=== PATIENT | male | born 1995 | race African-American/Black ===

== ENCOUNTER 2018-09-27 16:30 | Emergency (ER) | payer OTHER ==
--- NOTE | 2018-09-27 16:34 | PDOC ---
Rapid Medical Evaluation Time Seen by Provider: 09/27/18 16:32 Medical Evaluation: Allergies Allergy/AdvReac Type Severity Reaction Status Date / Time No Known Allergies Allergy Verified 12/20/13 10:35 09/27/18 16:32 I performed a brief in-person evaluation of this patient. Chief complaint: Palpitations Pertinent physical exam findings: V/s unremarkable. RRR, S1/S2. Lungs CTAB. I have ordered the following: EKG Patient will proceed to the ED for further evaluation. Discharge Disposition - Diagnosis Palpitations - Referrals - Patient Instructions - Post Discharge Activity
[2018-09-27 16:36] VITALS: BP 141/83; PULSE 78; TEMP 98.8
--- NOTE | 2018-09-27 16:54 | PDOC ---
History of Present Illness - General Chief Complaint: Palpitations Stated Complaint: CHEST PAINS, ABD PAINS Time Seen by Provider: 09/27/18 16:32 - History of Present Illness Initial Comments: 23yo M with no significant PMH complaining of heart palpitations x 2 months. Patient states that he has also been feeling weak. His palpitations have no correlation with activity or exertion. Denies history of thyroid disorder, cardiac pathology, excessive caffeine intake, or use of illicit substances. He does endorse some stress in his life related to his unemployment and concern for his health. Patient also reports LLQ abdominal pain which he attributes to dropping a weight in that area during a workout. No fevers or chills. Past History - Past Medical History Allergies/Adverse Reactions: Allergies Allergy/AdvReac Type Severity Reaction Status Date / Time No Known Allergies Allergy Verified 09/27/18 16:32 Home Medications: Ambulatory Orders No Home Medications 0 dose .ROUTE UTDICT 12/09/12 Acetaminophen [Tylenol .Extra-Strength -] 500 mg PO Q4H #30 tablet 12/20/13 Famotidine [Pepcid -] 20 mg PO DAILY #7 tablet 12/20/13 Asthma: Yes COPD: No Other medical history: hard of hearing - Suicide/Smoking/Psychosocial Hx Smoking Status: No Smoking History: Never smoked Number of Cigarettes Smoked Daily: 0 Hx Alcohol Use: No Substance Use Type: None Review of Systems - Review of Systems Comments:: Constitutional: no fever, no chills HEENT: no throat pain, no dysphagia Cardiovascular: no chest pain, +palpitations Respiratory: no cough, no shortness of breath Gastrointestinal: +abdominal pain, no nausea Genitourinary: no dysuria, no frequency Musculoskeletal: no myalgia, no arthralgia Skin: no rash, no itching Neurologic: no headache, no dizziness *Physical Exam - Vital Signs Last Vital Signs Temp Pulse Resp BP Pulse Ox 98.8 F 78 20 141/83 98 09/27/18 16:33 09/27/18 16:33 09/27/18 16:33 09/27/18 16:33 09/27/18 16:33 - Physical Exam Comments: General: Awake, alert, and fully oriented, in no acute distress Head: No signs of trauma Eyes: EOMI, sclera anicteric ENT: Moist mucus membranes, hard of hearing Neck: Normal ROM, supple Lungs: Lungs clear, Normal breath sounds Cardio: Regular rhythm, S1 and S2 present, grade I systolic murmur Abdomen: Soft, nondistended, nontender. No guarding, no rebound, no masses Extremities: Normal range of motion, Distal pulses present SKIN: Warm, Dry, normal turgor Neurologic: Cranial nerves II through XII grossly intact. Moderate Sedation - Procedure Monitoring Vital Signs: Procedure Monitoring Vital Signs Temperature 98.8 F 09/27/18 16:33 Pulse Rate 78 09/27/18 16:33 Respiratory Rate 20 09/27/18 16:33 Blood Pressure 141/83 09/27/18 16:33 O2 Sat by Pulse Oximetry (%) 98 09/27/18 16:33 ED Treatment Course - LABORATORY CBC & Chemistry Diagram: 09/27/18 17:50 09/27/18 17:50 Medical Decision Making - Medical Decision Making 23yo M with no significant PMH complaining of heart palpitations x 2 months. DDX including but not limited to thyroid disorder, cardiac arrhythmia, congenital heart disease, anemia, anxiety EKG, CBC, CMP, TSH 09/27/18 18:06 EKG: Rate 81, QTc 420, NSR with sinus arrhythmia No anemia or leukocytosis, CMP and TSH pending 09/27/18 18:33 CMP and TSH unremarkable Plan to discharge 09/27/18 18:49 *DC/Admit/Observation/Transfer Diagnosis at time of Disposition: Palpitations - Discharge Dispostion Disposition: HOME Condition at time of disposition: Stable - Referrals Referrals: Riccardo Melvin MD [Primary Care Provider] - [facility] [Provider Group] - Patient Instructions Printed Discharge Instructions: DI for Palpitations Additional Instructions: You came into the ED for palpitations. Blood work and EKG did not indicate acute pathology. A copy of your lab results was given to you. Please review the handout about palpitations. Follow-up with a primary care physician this week to discuss this ED visit and to further evaluate your symptoms. Your care is not complete until you do so. Your bilirubin level was noted to be elevated and this is something your primary care provider should know about. You have been referred to the [facility]. Call and make an appointment at the number provided. Immediate medical attention is required if: you pass out, have any chest pain, shortness of breath, severe headaches, changes in vision, focal numbness or weakness, any severe abdominal pain, any black tarry stool, or any new or concerning symptoms. If you think you are having an emergency, call for emergency medical services or present to the emergency department right away. - Post Discharge Activity
--- NOTE | 2018-09-27 17:25 | PDOC ---
Attending Attestation - HPI HPI: 09/27/18 18:18 The patient is a 23 year old male with no significant PMH who presents to the ER with intermittent palpitations for the past 2 months. Patient states the palpitations worsened today prompting him to come to the ER for an evaluation. Patient reports the palpitations are exacerbated when lying flat. The palpitations are not worsened with exercise. Patient denies any caffeine intake. Patient quit smoking marijuana a year ago. Patient denies any cardiac history. Allergies: NKDA Social Hx: No reported drug, alcohol, or cigarette use. Surgical Hx: None reported. PCP: Dr. Melvin - Physicial Exam PE: 09/27/18 18:15 GENERAL: Awake, alert, and fully oriented, in no acute distress HEAD: No signs of trauma EYES: PERRLA, EOMI, sclera anicteric, conjunctiva clear ENT: Auricles normal inspection, hearing impaired, nares patent, oropharynx clear without exudates. Moist mucosa NECK: Normal ROM, supple, no lymphadenopathy, JVD, or masses LUNGS: Breath sounds equal, clear to auscultation bilaterally. No wheezes, and no crackles HEART: Regular rate and rhythm, normal S1 and S2, no rubs or gallops, (+) Functional heart murmur 2/6. ABDOMEN: Soft, nontender, normoactive bowel sounds. No guarding, no rebound. No masses EXTREMITIES: Normal range of motion, no edema. No clubbing or cyanosis. No cords, erythema, or tenderness NEUROLOGICAL: Deaf. SKIN: Warm, Dry, normal turgor, no rashes or lesions noted. <Jessica Meraz - Last Filed: 09/27/18 18:58> - Resident Resident Name: Marla Cruz - ED Attending Attestation I have performed the following: I have examined & evaluated the patient, The case was reviewed & discussed with the resident, I agree w/resident's findings & plan, Exceptions are as noted - HPI HPI: 09/27/18 17:25 this 23 yo male p/w complaint of palpitations 09/27/18 18:57 - Medical Decision Making 09/27/18 18:50 labs are within normal EXCEPT for his total bilirubin, recommend he followup with primary physician as outpt . He has no nausea,vomiting or epigastric pain currently pt given an appt with [facility] 09/27/18 18:53 09/28/18 01:14 imp: palpitations, elevated T bili plan appointment made for this pt at [facility] for later this week <Megan Sanders - Last Filed: 09/28/18 01:15>
[2018-09-27 18:06] LABS: BASO % 0.7 % (0-2.0); HEMATOCRIT 41.8 % (35.4-49); LYMPH % 41.6 % (8-40); MCH 30.2 pg (25.7-33.7); MCHC 35.8 g/dl (32.0-35.9); MEAN CELL VOLUME 84.2 fl (80-96); MEAN PLT VOLUME 9.3 fl (7.5-11.1); MONO % 11.3 % (3.8-10.2); NEUT % 44.4 % (42.8-82.8); PLATELET COUNT 157 K/MM3 (134-434); RBC 4.97 M/mm3 (4.00-5.60); WHITE BLOOD COUNT 3.9 K/mm3 (4.0-10.0)
[2018-09-27 18:37] LABS: ALBUMIN 4.2 g/dl (3.4-5.0); ALK PHOS 43 U/L (45-117); ANION GAP 7 MMOL/L (8-16); BILIRUBIN,TOTAL 2.9 mg/dL (0.2-1); BLOOD UREA NITROGEN 10 mg/dL (7-18); CALCIUM 8.7 mg/dL (8.5-10.1); CHLORIDE 106 mmol/L (98-107); CO2 27 mmol/L (21-32); GLUCOSE,RANDOM 105 mg/dL (74-106); POTASSIUM 3.4 mmol/L (3.5-5.1); SGOT/AST 15 U/L (15-37); SGPT/ALT 19 U/L (13-61); SODIUM 140 mmol/L (136-145); TOT PROT 7.3 g/dl (6.4-8.2)
--- NOTE | 2018-09-28 11:54 | EKG ---
Test Reason : Blood Pressure : / mmHG Vent. Rate : 081 BPM Atrial Rate : 081 BPM P-R Int : 164 ms QRS Dur : 082 ms QT Int : 362 ms P-R-T Axes : 053 004 042 degrees QTc Int : 420 ms NORMAL SINUS RHYTHM WITH SINUS ARRHYTHMIA NORMAL ECG WHEN COMPARED WITH ECG OF 20-DEC-2013 12:04, T WAVE INVERSION NO LONGER EVIDENT IN ANTERIOR LEADS Confirmed by MD NUBIA, NATHALIE ([id number]) on 09/28/2018 11:53:50 AM Referred By: Confirmed By:NATHALIE DELACRUZ MD
== END 2018-09-27 19:05 | disposition home or self-care (01) ==
LOC: JER 16:30
DX: R00.2 Palpitations (principal); R79.89 Other specified abnormal findings of blood chemistry
CPT/HCPCS: 36415; 80053; 84443; 85025; 93005; 93010; 99282-25

== ENCOUNTER 2019-01-02 10:01 | Emergency (ER) | payer OTHER ==
[2019-01-02 10:12] VITALS: BP 113/70; PULSE 72; TEMP 98.1; BMI 20.2
[2019-01-02] MEDS ORDERED: DEXAMETHASONE SOD PHOSPHATE 10 MG/1 ML VIAL IM ONE (10:22)
[2019-01-02] MEDS ORDERED: ALBUTEROL SO4 2.5/IPRATROPIUM 0.5 INH SOL 3 ML VIAL.NEB. NEB ONE ×2 (10:22→10:25)
[2019-01-02] MEDS ORDERED: DEXAMETHASONE SOD PHOSPHATE 10 MG/1 ML VIAL ONE (10:25)
--- NOTE | 2019-01-02 10:36 | PDOC ---
History of Present Illness - General Chief Complaint: Asthma Stated Complaint: CHEST PAIN Time Seen by Provider: 01/02/19 10:17 History Source: Patient Exam Limitations: Clinical Condition - History of Present Illness Initial Comments: 01/02/19 10:33 Patient with history of asthma present with complaint of 2 weeks history of intermittent chest tightness and wheezing. Patient denies cough, shortness of breath, chest pain, nausea or vomiting. Denies any other symptoms Timing/Duration: other (2 weeks) Past History - Past Medical History Allergies/Adverse Reactions: Allergies Allergy/AdvReac Type Severity Reaction Status Date / Time No Known Allergies Allergy Verified 01/02/19 10:09 Home Medications: Ambulatory Orders Prednisone [Deltasone] 20 mg PO BID 4 Days #8 tablet 01/02/19 Asthma: Yes COPD: No Other medical history: [place] B[employer] - Suicide/Smoking/Psychosocial Hx Smoking Status: No Smoking History: Never smoked Number of Cigarettes Smoked Daily: 0 Hx Alcohol Use: No Substance Use Type: None Review of Systems - Review of Systems Able to Perform ROS?: Yes Is the patient limited Albanian proficient: No Constitutional: No: Fever, Malaise HEENTM: No: Symptoms Reported, See HPI, Eye Pain, Blurred Vision, Tearing, Recent change in vision, Double Vision, Cataracts, Ear Pain, Ocular Prothesis, Ear Discharge, Nose Pain, Nose Congestion, Tinnitus, Nose Bleeding, Hearing Loss , Throat Pain, Throat Swelling, Mouth Pain, Dental Problems, Difficulty Swallowing, Mouth Swelling, Other Respiratory: No: Symptoms reported, See HPI, Cough, Orthopnea, Shortness of Breath, SOB with Exertion, SOB at Rest, Stridor, Wheezing, Productive cough, Hemoptysis, Other Cardiac (ROS): Yes: Symptoms Reported, See HPI, Chest Tightness. No: Chest Pain , Edema, Irregular Heart Rate, Lightheadedness, Palpitations, Syncope, Other ABD/GI: No: Nausea, Vomiting Neurological: No: Headache, Numbness, Paresthesia, Weakness, Dizziness All Other Systems: Reviewed and Negative *Physical Exam - Vital Signs Last Vital Signs Temp Pulse Resp BP Pulse Ox 98.1 F 72 18 113/70 99 01/02/19 10:07 01/02/19 10:07 01/02/19 10:07 01/02/19 10:07 01/02/19 10:07 - Physical Exam Comments: 01/02/19 10:31 GENERAL: Well developed, well nourished. Awake and alert. No acute distress. HEENT: Normocephalic, atraumatic. PERRLA, EOMI. No conjunctival pallor. Sclera are non-icteric. Moist mucous membranes. Oropharynx is clear. NECK: Supple. Full ROM. CARDIOVASCULAR: Regular rate and rhythm. No murmurs, rubs, or gallops. Distal pulses are 2+ and symmetric. PULMONARY: No evidence of respiratory distress. Lungs clear to auscultation bilaterally. No wheezing, rales or rhonchi. ABDOMINAL: Soft. Non-tender. Non-distended. No rebound or guarding. No organomegaly. Normoactive bowel sounds. MUSCULOSKELETAL Normal range of motion at all joints. SKIN: Warm and dry. Normal capillary refill. No rashes. No cyanosis NEUROLOGICAL: Alert, awake, appropriate. Gait is normal without ataxia. PSYCHIATRIC: Cooperative. Good eye contact. Appropriate mood General Appearance: Yes: Nourished, Appropriately Dressed. No: Apparent Distress ED Treatment Course - Medications Given in the ED: ED Medications Discontinued Medications Generic Name Dose Route Start Last Admin Trade Name Freq PRN Reason Stop Dose Admin Albuterol/Ipratropium 2 amp 01/02/19 10:22 01/02/19 10:31 Duoneb - NEB 01/02/19 10:23 2 amp ONCE ONE Administration Dexamethasone Sodium Phosphate 10 mg 01/02/19 10:22 01/02/19 10:31 Decadron Injection - IM 01/02/19 10:23 10 mg ONCE ONE Administration Medical Decision Making - Medical Decision Making 01/02/19 10:33 Patient with history of asthma present with complaint of 2 weeks history of intermittent chest tightness and wheezing. Patient denies cough, shortness of breath, chest pain, nausea or vomiting. Denies any other symptoms Clinical exam unremarkable with normal lungs and cardio exam. Patient in no acute distress. Symptoms likely bronchospasm from asthma. DuoNeb with albuterol and Atrovent ordered. Decadron 10 mg IM ordered for bronchospasm. Patient be discharged on 4 day course of prednisone with pulmonology follow-up 01/02/19 11:06 Patient report feeling better after duoneb and decadron. Stable for discharge *DC/Admit/Observation/Transfer Diagnosis at time of Disposition: Acute bronchospasm Asthma Qualifiers: Asthma severity: mild Asthma persistence: intermittent Asthma complication type : with acute exacerbation Qualified Code(s): J45.21 - Mild intermittent asthma with (acute) exacerbation - Discharge Dispostion Disposition: HOME Condition at time of disposition: Stable Decision to Admit order: No - Prescriptions Prescriptions: Prednisone [Deltasone] 20 mg PO BID 4 Days #8 tablet - Referrals Referrals: Venkata Liu MD [Staff Physician] - - Patient Instructions Printed Discharge Instructions: Asthma -- Adult Additional Instructions: Take medications as prescribed for chest tightness. Follow-up with referred enterer if no improvement in 2 days - Post Discharge Activity
--- NOTE | 2019-01-05 17:25 | EKG ---
Test Reason : Blood Pressure : / mmHG Vent. Rate : 061 BPM Atrial Rate : 061 BPM P-R Int : 148 ms QRS Dur : 090 ms QT Int : 382 ms P-R-T Axes : 034 008 038 degrees QTc Int : 384 ms NORMAL SINUS RHYTHM NORMAL ECG WHEN COMPARED WITH ECG OF 27-SEP-2018 17:39, NO SIGNIFICANT CHANGE WAS FOUND Confirmed by OLIVE LYNN MD ([id number]) on 01/05/2019 5:24:47 PM Referred By: Confirmed By:OLIVE LYNN MD
== END 2019-01-02 11:14 | disposition home or self-care (01) ==
LOC: JER 10:01 → JERFT 10:01
PROC: 3E0F7GC Introduction of Other Therapeutic Substance into Respiratory Tract, Via Natural or Artificial Opening (ICD-10-PCS; principal; 2019-01-02)
PROC: 3E0233Z Introduction of Anti-inflammatory into Muscle, Percutaneous Approach (ICD-10-PCS; 2019-01-02)
DX: J45.21 Mild intermittent asthma with (acute) exacerbation (principal)
CPT/HCPCS: 93005; 93010; 94640; 96372; 99281-25; J1100

== ENCOUNTER 2021-10-20 17:40 | Emergency (ER) | payer BC, OTHER ==
[2021-10-20 17:57] VITALS: BP 116/68; PULSE 58; TEMP 98; BMI 20.2
[2021-10-20 18:57] LABS: BASO % 0.7 % (0-2.0); EOS % 4.6 % (0-4.5); HEMATOCRIT 40.6 % (35.4-49); HEMOGLOBIN 14.3 GM/dL (11.7-16.9); LYMPH % 42.3 % (8-40); MCHC 35.1 g/dl (32.0-35.9); MEAN CELL VOLUME 82.6 fl (80-96); MEAN PLT VOLUME 8.7 fl (7.5-11.1); MONO % 11.2 % (3.8-10.2); NEUT % 41.2 % (42.8-82.8); PLATELET COUNT 161 10^3/uL (134-434); RBC 4.91 M/mm3 (4.00-5.60); RDW 13.6 % (11.9-15.9); WHITE BLOOD COUNT 4.3 K/mm3 (4.0-10.0)
[2021-10-20 19:01] LABS: PH,URINE 5.5 (5.0-8.0); URINE APPEARANCE CLEAR; URINE BILIRUBIN NEGATIVE (NEGATIVE); URINE COLOR YELLOW; URINE GLUCOSE (UA) NEGATIVE (NEGATIVE); URINE KETONE NEGATIVE (NEGATIVE); URINE LEUK ESTERASE NEGATIVE (NEGATIVE); URINE NITRITE NEGATIVE (NEGATIVE); URINE PROTEIN NEGATIVE (NEGATIVE)
[2021-10-20 19:23] LABS: ALBUMIN 4.3 g/dl (3.4-5.0); BLOOD UREA NITROGEN 17.5 mg/dL (7-18); CALCIUM 9.3 mg/dL (8.5-10.1)
[2021-10-20 19:26] LABS: CREATININE 0.9 mg/dL (0.55-1.3)
[2021-10-20 19:28] LABS: BILIRUBIN,TOTAL 2.8 mg/dL (0.2-1); TOT PROT 7.4 g/dl (6.4-8.2)
[2021-10-20 19:52] LABS: METHADONE, UR NEGATIVE (NEGATIVE); PHENCYCLIDINE,URINE NEGATIVE (NEGATIVE); URINE BENZODIAZEPINES NEGATIVE (NEGATIVE)
[2021-10-20 20:02] LABS: COCAINE, UR NEGATIVE (NEGATIVE); OPIATES, URI POSITIVE (NEGATIVE); URINE AMPHETAMINES NEGATIVE (NEGATIVE); URINE BARBITURATES NEGATIVE (NEGATIVE)
== END 2021-10-20 19:41 | disposition home or self-care (01) ==
LOC: JER 17:40
DX: R41.89 Other symptoms and signs involving cognitive functions and awareness (principal)
CPT/HCPCS: 36415; 80053; 80307; 81003; 85025; 99283-25

== ENCOUNTER 2023-04-03 11:41 | Emergency (ER) | payer BC, OTHER ==
[2023-04-03 11:58] VITALS: BP 108/67; PULSE 63; RESP 18; TEMP 98.2; BMI 22.3
== END 2023-04-03 13:55 | disposition home or self-care (01) ==
LOC: JERFT 11:41
DX: K08.89 Other specified disorders of teeth and supporting structures (principal); R51.9 Headache, unspecified
CPT/HCPCS: 99283-25

== ENCOUNTER 2023-12-01 16:53 | Emergency (ER) | payer OTHER ==
[2023-12-01 16:59] VITALS: BP 114/66; PULSE 78; RESP 18; TEMP 98; BMI 19.5
== END 2023-12-01 18:23 | disposition home or self-care (01) ==
LOC: JERFT 16:53
DX: K08.89 Other specified disorders of teeth and supporting structures (principal)
CPT/HCPCS: 99283-25

== ENCOUNTER 2024-08-21 01:44 | Emergency (ER) | payer OTHER ==
[2024-08-21 02:04] VITALS: BP 131/78; PULSE 64; RESP 18; TEMP 98.4; BMI 20.2
[2024-08-21] MEDS ORDERED: AMOX TR/POT CLAV 875MG/125MG TABLETS (FP) ONE (04:13)
[2024-08-21] MEDS: AMOX TR/POT CLAV 875MG/125MG TABLETS (FP) PO ONE (04:15)
== END 2024-08-21 04:26 | disposition home or self-care (01) ==
LOC: JER 01:44
DX: R51.9 Headache, unspecified (principal); K04.7 Periapical abscess without sinus
CPT/HCPCS: 99283-25